=== PATIENT | male | born 1990 | race Caucasian/White ===

== ENCOUNTER 2020-03-20 12:05 | Emergency (ER) | payer BC, OTHER ==
[~2020-03-20] VITALS: Ht 170.2 cm; Wt 77.1 kg
[2020-03-20 12:05] VITALS: BP_SYST 130
== END 2020-03-20 13:25 | disposition home or self-care (01) ==
LOC: SED 12:05
DX: S20.212A Contusion of left front wall of thorax, initial encounter (principal); X58.XXXA Exposure to other specified factors, initial encounter; Y93.89 Activity, other specified; Y92.89 Other specified places as the place of occurrence of the external cause; Y99.8 Other external cause status
CPT/HCPCS: 71045; 71100; 99284